=== PATIENT | female | born 1990 | race Two or more races ===

== ENCOUNTER 2024-06-09 15:27 | Outpatient (CLI) | payer OTHER | END 2024-06-09 15:28 | disposition home or self-care (01) | LOC: PRENATAL 15:27 | PROVIDERS: ATTEND Obstetrics & Gynecology Maternal & Fetal Medicine | DX: O36.80X0 Pregnancy with inconclusive fetal viability, not applicable or unspecified (principal); Z36.82 Encounter for antenatal screening for nuchal translucency; O09.521 Supervision of elderly multigravida, first trimester; Z3A.13 13 weeks gestation of pregnancy ==

== ENCOUNTER 2024-07-27 09:52 | Outpatient (CLI) | payer OTHER | END 2024-07-27 09:54 | disposition home or self-care (01) | LOC: PRENATAL 09:52 | PROVIDERS: ATTEND Obstetrics & Gynecology Maternal & Fetal Medicine | DX: O35.3XX0 Maternal care for (suspected) damage to fetus from viral disease in mother, not applicable or unspecified (principal); O44.00 Complete placenta previa NOS or without hemorrhage, unspecified trimester; O09.529 Supervision of elderly multigravida, unspecified trimester; Z3A.20 20 weeks gestation of pregnancy ==

== ENCOUNTER 2024-09-05 19:01 | Outpatient (CLI) | payer OTHER ==
[~2024-09-05] VITALS: Ht 167.6 cm; Wt 86.2 kg
[2024-09-05 18:15] VITALS: BP 112/75
[2024-09-05] MEDS ORDERED: RINGERS SOLUTION,LACTATED 1,000 ML IV SCH (19:30)
[2024-09-05 20:10] LABS: HEMATOCRIT 35.2 % (36.0-45.00); MEAN CELL VOLUME 88.8 fL (80.00-100.00); MEAN CORPUSCULAR HEMOGLOBIN 30.2 pg (27.00-32.0); PLATELET COUNT 185 K/uL (150-450); RED BLOOD COUNT 3.96 M/uL (4.00-6.00); RED CELL DISTRIBUTION WIDTH 13.4 % (11.5-14.5); URINE APPEARANCE Clear; URINE BILIRRUBIN Negative (NEGATIVE); URINE BLOOD Negative; URINE COLOR Yellow; URINE GLUCOSE Negative (NEGATIVE); URINE KETONE 15 (NEGATIVE); URINE LEUKOCYTE Trace; URINE NITRATE Negative; URINE PROTEIN Negative (NEGATIVE); URINE UROBILINOGEN 0.2 E.U./dl
[2024-09-05 20:14] LABS: URINE EPITHELIAL CELLS 7.8 uL (0.0-38.8); URINE WBC 33.6 uL (0.0-23.2)
[2024-09-05 20:18] LABS: URINE CAST 0.45 uL (0.0-1.40); URINE RBC 0.3 uL (0.0-20.8)
[2024-09-05 20:40] LABS: ALBUMIN 3.1 gm/dL (3.4-5.0); BILIRUBIN TOTAL 0.2 mg/dL (0.3-1.2); CREATININE SERUM 0.59 mg/dL (0.55-1.02); GFR 115.33; GLOBULINA 3.3 G/DL (2.4-3.5); POTASSIUM 4.26 mEq/L (3.5-5.1); TOTAL PROTEIN 6.4 gm/dL (6.4-8.2)
[2024-09-05 20:54] LABS: INR < 0.93; PARTIAL THROMBOPLASTIN TIME 25.2 SECONDS (22.0-34.0); PROTHROMBIN TIME 9.8 SECONDS (9.0-11.5)
[2024-09-05] MEDS ORDERED: PRENATAL TABLE1 EAC1 PO (20:59)
[2024-09-05] MEDS ORDERED: PROBIOTIC1 EACH PO (21:00)
[2024-09-05] MEDS ORDERED: hydrOXYzine PAMOATE 50 MG CAPSULE PO PRN (22:00)
[2024-09-06 00:19] VITALS: BP 106/67
[2024-09-06 03:19] VITALS: BP 105/73
[2024-09-06 06:46] VITALS: BP 108/71; O2SAT 99
[2024-09-06 11:58] VITALS: BP 98/64; O2SAT 98
[2024-09-06 15:11] VITALS: BP 103/65
[2024-09-06 17:50] VITALS: BP 103/65
== END 2024-09-06 17:50 | disposition home or self-care (01) ==
LOC: OBS/DEL 19:01
PROVIDERS: ATTEND Obstetrics & Gynecology
DX: O26.892 Other specified pregnancy related conditions, second trimester (principal); R10.2 Pelvic and perineal pain; Z3A.25 25 weeks gestation of pregnancy

== ENCOUNTER → 2024-10-13 10:30 | Outpatient (CLI) | payer OTHER ==
[~2024-10-13 10:30] MED LIST: PRENATAL TABLE1 EAC1 PO; PROBIOTIC1 EACH PO
== END | disposition home or self-care (01) ==
LOC: PRENATAL 10:30
PROVIDERS: ATTEND Obstetrics & Gynecology Maternal & Fetal Medicine
DX: O26.849 Uterine size-date discrepancy, unspecified trimester (principal); O36.8199 Decreased fetal movements, unspecified trimester, other fetus; O09.529 Supervision of elderly multigravida, unspecified trimester; Z3A.32 32 weeks gestation of pregnancy

== ENCOUNTER 2024-11-30 18:32 | Outpatient (CLI) | payer OTHER ==
[~2024-11-30] VITALS: Ht 167.6 cm; Wt 91.6 kg
[2024-11-30 18:02] VITALS: BP 117/79
[2024-11-30] MEDS ORDERED: VALTREX1000 MG PO (18:40)
[2024-11-30] MEDS ORDERED: RINGERS SOLUTION,LACTATED 1,000 ML IV SCH (19:00)
[2024-11-30 19:30] LABS: URINE APPEARANCE Clear; URINE BILIRRUBIN Negative (NEGATIVE); URINE BLOOD Small; URINE COLOR Yellow; URINE GLUCOSE Negative (NEGATIVE); URINE KETONE Negative (NEGATIVE); URINE LEUKOCYTE Trace; URINE NITRATE Negative; URINE PROTEIN Negative (NEGATIVE); URINE UROBILINOGEN 0.2 E.U./dl
[2024-11-30 19:31] LABS: URINE BACTERIA 143.1 uL (0.0-1933); URINE EPITHELIAL CELLS 9.8 uL (0.0-38.8); URINE WBC 31.6 uL (0.0-23.2)
[2024-11-30 20:14] LABS: HEMATOCRIT 36.9 % (36.0-45.00); HEMOGLOBIN 12.2 g/dL (12.0-15.00); MEAN CELL VOLUME 89.9 fL (80.00-100.00); MEAN CORPUSCULAR HEMOGLOBIN 29.7 pg (27.00-32.0); PLATELET COUNT 152 K/uL (150-450); RED CELL DISTRIBUTION WIDTH 14.1 % (11.5-14.5)
[2024-11-30 20:23] LABS: URINE CAST 0.14 uL (0.0-1.40); URINE RBC 0.2 uL (0.0-20.8)
[2024-11-30 22:53] VITALS: BP 114/73
[2024-12-01 04:09] VITALS: BP 120/79
[2024-12-01 06:08] VITALS: BP 114/75; O2SAT 98
[2024-12-01 10:53] VITALS: BP 114/75
== END 2024-12-01 14:14 | disposition home or self-care (01) ==
LOC: OBS/DEL 18:32
PROVIDERS: Obstetrics & Gynecology; ATTEND Student in an Organized Health Care Education/Training Program
DX: O26.853 Spotting complicating pregnancy, third trimester (principal); Z3A.38 38 weeks gestation of pregnancy

== ENCOUNTER 2024-12-01 10:00 | Inpatient (IN) | payer OTHER ==
[~2024-12-01] VITALS: Ht 167.6 cm; Wt 3.2 kg
[~2024-12-01 10:00] MED LIST changes: +VALTREX1000 MG PO
[2024-12-01 14:26] LABS: URINE APPEARANCE Clear; URINE BILIRRUBIN Negative (NEGATIVE); URINE BLOOD Small; URINE COLOR Yellow; URINE GLUCOSE Negative (NEGATIVE); URINE KETONE Negative (NEGATIVE); URINE LEUKOCYTE Large; URINE NITRATE Negative; URINE PROTEIN Negative (NEGATIVE)
[2024-12-01 14:31] LABS: URINE BACTERIA 1141.9 uL (0.0-1933); URINE EPITHELIAL CELLS 29.7 uL (0.0-38.8); URINE WBC 298.1 uL (0.0-23.2)
[2024-12-01 14:58] LABS: HEMATOCRIT 36.6 % (36.0-45.00); HEMOGLOBIN 12.4 g/dL (12.0-15.00); MEAN CELL VOLUME 88.8 fL (80.00-100.00); MEAN CORPUSCULAR HGB CONC 33.8 g/dl (32.0-36.0); PLATELET COUNT 160 K/uL (150-450); RED BLOOD COUNT 4.12 M/uL (4.00-6.00); RED CELL DISTRIBUTION WIDTH 14.7 % (11.5-14.5)
[2024-12-01 15:12] LABS: INR < 0.93; PARTIAL THROMBOPLASTIN TIME 27.1 SECONDS (22.0-34.0); PROTHROMBIN TIME 10.1 SECONDS (9.0-11.5)
[2024-12-01 15:17] LABS: URINE CAST 0.44 uL (0.0-1.40); URINE RBC 1.9 uL (0.0-20.8)
[2024-12-01 15:41] LABS: ALBUMIN 2.8 gm/dL (3.4-5.0); BILIRUBIN TOTAL 0.46 mg/dL (0.3-1.2); CALCIUM 9.6 mg/dL (8.5-10.1); CREATININE SERUM 0.67 mg/dL (0.55-1.02); GFR 99.59; GLOBULINA 3.5 G/DL (2.4-3.5); POTASSIUM 3.82 mEq/L (3.5-5.1); TOTAL PROTEIN 6.3 gm/dL (6.4-8.2)
[2024-12-06 12:34] VITALS: BP 127/85
[2024-12-06] MEDS ORDERED: RINGERS SOLUTION,LACTATED 1,000 ML IV SCH (14:00)
[2024-12-06] MEDS ORDERED: CEFAZOLIN SODIUM 1,000 MG VIAL IV SCH (14:00)
[2024-12-06] MEDS ORDERED: ERYTHROMYCIN BASE OPHT 1GM EACH TUBE OP ONE (14:13)
[2024-12-06] MEDS ORDERED: OXYTOCIN 10 UNITS/ML VIAL ONE ×2 (14:26→19:06)
[2024-12-06] MEDS ORDERED: OXYTOCIN 1,000 ML IV SCH (16:15)
[2024-12-06] MEDS ORDERED: MEPERIDINE HCL/PF 25 MG/ML VIAL IV PRN (16:15)
[2024-12-06] MEDS ORDERED: KETOROLAC TROMETHAMINE 30 MG VIAL IV PRN (16:15)
[2024-12-06] MEDS ORDERED: PROMETHAZINE HCL 25 MG/ML AMPUL IV PRN (16:30)
[2024-12-06] MEDS ORDERED: MORPHINE SULFATE 4 MG/ML VIAL IV ONE ×2 (17:05→17:35)
[2024-12-06] MEDS ORDERED: KETOROLAC TROMETHAMINE 30 MG VIAL ONE (18:38)
[2024-12-06 19:24] LABS: HEMATOCRIT 38.4 % (36.0-45.00); HEMOGLOBIN 12.7 g/dL (12.0-15.00); MEAN CELL VOLUME 89.8 fL (80.00-100.00); MEAN CORPUSCULAR HEMOGLOBIN 29.6 pg (27.00-32.0); PLATELET COUNT 133 K/uL (150-450); RED BLOOD COUNT 4.28 M/uL (4.00-6.00); RED CELL DISTRIBUTION WIDTH 14.2 % (11.5-14.5)
[2024-12-06 20:16] VITALS: BP 121/82
[2024-12-07] VITALS: BP 106/74
[2024-12-07 04:00] VITALS: BP 108/76
[2024-12-07] MEDS ORDERED: OxyCODONE HCL/APAP UD (PERCOCET) PO PRN (07:00)
[2024-12-07] MEDS ORDERED: IBUprofen 800 MG TABLET PO PRN (07:00)
[2024-12-07 08:00] VITALS: BP 105/72
[2024-12-07] MEDS ORDERED: DOCUSATE SODIUM 100MG CAP PO SCH (09:00)
[2024-12-07] MEDS ORDERED: SIMETHICONE 125 MG CAPSULE PO SCH (09:00)
[2024-12-07 16:00] VITALS: BP 107/74
[2024-12-07 21:23] VITALS: BP 117/80
[2024-12-08 01:13] VITALS: BP 113/76
[2024-12-08 08:00] VITALS: BP 115/67
== END 2024-12-08 16:35 | disposition home or self-care (01) | DRG 788 ==
LOC: LDR 12-06 13:39 → O/R 12-06 16:55 → OB/GYN 12-06 16:56 → LDR 12-11 10:00
PROVIDERS: ADMIT Student in an Organized Health Care Education/Training Program; ATTEND Student in an Organized Health Care Education/Training Program
PROC: 4A1HXCZ Monitoring of Products of Conception, Cardiac Rate, External Approach (ICD-10-PCS; 2024-12-06)
PROC: 10D00Z1 Extraction of Products of Conception, Low, Open Approach (ICD-10-PCS; principal; 2024-12-06 14:00)
DX: O34.211 Maternal care for low transverse scar from previous cesarean delivery (principal); Z3A.38 38 weeks gestation of pregnancy; Z37.0 Single live birth